=== PATIENT | female | born 1945 | race Caucasian/White ===

== ENCOUNTER 2019-06-23 06:03 | Emergency (ER) | payer OTHER ==
[~2019-06-23] VITALS: Ht 152.4 cm; Wt 89.4 kg
[2019-06-23 06:09] VITALS: Ht 152.4 cm; Wt 89.4 kg
[2019-06-23 08:34] VITALS: BP 159/87
== END 2019-06-23 08:34 | disposition home or self-care (01) ==
LOC: ED 06:03
DX: J32.0 Chronic maxillary sinusitis (principal); J45.909 Unspecified asthma, uncomplicated; I10 Essential (primary) hypertension; Z90.89 Acquired absence of other organs; Z98.890 Other specified postprocedural states; Z88.5 Allergy status to narcotic agent